=== PATIENT | male | born 1945 | race Caucasian/White ===

== ENCOUNTER 2017-03-20 15:20 | Inpatient (IN) | payer MEDICARE ==
[~2017-03-20] VITALS: Ht 167.6 cm; Wt 51.1 kg
--- NOTE | ~2017-03-20 | CON ---
PATIENT'S NAME: NEYMAR MINER [facility] AGE: 71 Y [address] ROOM: [place] [address] LOCATION: GPCU ADMIT DATE: 03/20/2017 Consultation DISCHARGE DATE: FAMILY PHYSICIAN: Neymar Urrutia ATTENDING PHYSICIAN: Jose MOLINA DATE OF CONSULTATION: 03/20/2017 REFERRING PHYSICIAN: TAN AARON MD [facility] Nephrology Consultation REASON FOR CONSULTATION: Hyponatremia. HISTORY OF PRESENT ILLNESS: This is a 71-year-old male patient who was admitted for symptomatic carotid disease. The patient did have a CTA that showed a high-grade left ICA stenosis with significant soft plaque and thrombus per Dr. Verdugo. The patient was seen in Dr. Verdugo's clinic and was subsequently admitted due to a significant respiratory distress that he was experiencing while at the clinic. On admission, the patient's sodium was found to be 115. On recheck, the sodium was found to be 111. Therefore, Dr. Stephen was consulted due to the patient's history of hyponatremia. At the time of exam, it is unknown of the patient's baseline sodium, however, he does report that he has had a low sodium over the past few months. He does have a past medical history of COPD and peripheral vascular disease with known left carotid stenosis, poor oral intake with reported weight loss of 20 pounds in the last year, alcohol abuse of 1 to 4 drinks daily, tobacco abuse, and poor medication compliance. The patient does also have a history of hyperlipidemia and hypertension. PAST SURGICAL HISTORY: 1. Right ankle surgery. 2. Left foot surgery. FAMILY HISTORY: Reviewed and is noncontributory. There is no history of electrolyte disorders or kidney disease. No history of dialysis. The patient does report his father at the age of 63 due to heart disease. His mother had brain cancer. SOCIAL HISTORY: The patient does report tobacco abuse as well as 1 to 3 drinks of beer daily. CURRENT ALLERGIES: PATIENT'S NAME: NEYMAR MINER [facility] AGE: 71 Y [address] ROOM: [place] [address] LOCATION: GPCU ADMIT DATE: 03/20/2017 Consultation DISCHARGE DATE: FAMILY PHYSICIAN: Neymar Urrutia ATTENDING PHYSICIAN: Jose MOLINA None to medication. CURRENT HOME MEDICATIONS: Include: 1. Lipitor 20 mg daily. 2. Plavix 75 mg daily. 3. Norvasc 2.5 mg daily. 4. Aspirin 81 mg 4 tablets daily. 5. Lisinopril and hydrochlorothiazide 1 tablet daily. 6. Anoro Ellipta 1 puff inhalation daily. 7. Albuterol HFA 6.7 g 1 puff p.o. p.r.n. shortness of breath. 8. Albuterol and ipratropium 0.5/3 q.6 hours p.r.n. shortness of breath. REVIEW OF SYSTEMS: GENERAL: Positive for a 20-pound weight loss over the last year. HEENT: Eyes; positive for visual changes. Nose; no epistaxis or rhinorrhea. Mouth; no gingival bleeding. Throat; no sore throat, hoarseness, or cough. RESPIRATORY: Denies wheezing or hemoptysis. History of COPD. History of dyspnea. CARDIOVASCULAR: Negative for chest pain or palpitations. Positive for orthopnea. GASTROINTESTINAL: Negative for nausea, vomiting, or diarrhea. GENITOURINARY: Negative for hematuria or nocturia. Negative for incontinence. Negative for hesitancy or urgency. REPRODUCTIVE: Negative for erectile dysfunction. MUSCULOSKELETAL: No new arthralgias or myalgias. IMMUNOLOGICAL: No history of recent infections. NEUROLOGICAL: No dizziness, memories, or seizures. PSYCHIATRIC: Denies depression or anxiety. DERMATOLOGIC: Denies any new rashes or lesions. HEMATOLOGICAL: Denies any bruising or easy bleeding. PHYSICAL EXAMINATION: VITAL SIGNS: Blood pressure 117/71, pulse is 96, respirations 16, and temperature is 97.8. Weight is 48.6 kg. GENERAL: On exam, this is an alert and oriented, white elderly male who appears his approximate stated age. He is in no acute distress. HEENT: His head is normocephalic and atraumatic. Eyes; pupils are equal and react briskly to light and accommodation. EOMs are intact. Nose is midline. Mouth; no gingival bleeding. Oral mucosa is pink and moist. NECK: Soft and supple. No JVD or lymphadenopathy. Positive carotid bruit on the left. RESPIRATORY: Lung sounds are clear to auscultation anteriorly and posteriorly. Breath sounds are nonlabored. CARDIOVASCULAR: Regular rate and rhythm. Unable to appreciate any murmurs, PATIENT'S NAME: NEYMAR MINER [facility] AGE: 71 Y [address] ROOM: [address] [place], [place] [address] LOCATION: GPCU ADMIT DATE: 03/20/2017 Consultation DISCHARGE DATE: FAMILY PHYSICIAN: Neymar Urrutia ATTENDING PHYSICIAN: JESSE,Jose rubs, or thrills. ABDOMEN: Soft, nontender, and nondistended. Bowel sounds are positive. EXTREMITIES: Show no signs of peripheral edema, clubbing, or cyanosis. NEUROLOGIC: Cranial nerves 2 through 12 are grossly intact. PSYCHIATRIC: Orientation to person, place, and time. LABORATORY DATA AND IMAGING STUDIES: CBC shows WBCs of 11.7, hemoglobin 15.2, hematocrit 42.1, and platelets are 378,000. Glucose is 95; BUN is 15; creatinine 0.8; sodium 115, on recheck 111; potassium 3.7; chloride is 79; CO2 is 24; calcium is 8.6; albumin is 3.3; phosphorus is 2.9; and INR is 0.97. Random urine sodium is 34, uric acid is 5.4, osmolality is 240, and urine osmolality is 463. Cortisol 29.1, TSH is 0.757. Chest x-ray was performed noting fibrotic stranding with no acute infiltrate. A CT neck with contrast for carotid artery protocol notes: 1. Complete occlusion of the right ICA. 2. Vahmdosh-su-pfwkyq stenosis involving the proximal left ICA measuring 60% to 70%. 3. Moderate stenosis involving the mid left ICA secondary to adjacent degenerative changes. 4. Severe emphysematous changes are present at the mid and upper lungs bilaterally. ASSESSMENT AND PLAN: 1. Hyponatremia. This is likely secondary to syndrome of inappropriate secretion of antidiuretic hormone (SIADH) versus beer potomania. The patient does have a longstanding history of chronic obstructive pulmonary disease with lung scarring noted on chest x-ray. He does also report a 20- pound weight loss and poor oral intake over the last year. Fluid intake has been excessive up to approximately 5 L. Cortisol is within normal limits as well as TSH. We will initiate 3% sodium chloride to run at 50 mL an hour x5 hours. We will repeat a stat sodium at that time, and make further recommendations as they are forthcoming. 2. Left carotid artery stenosis. Per Dr. Verdugo. 3. Tobacco abuse. 4. Alcohol abuse. 5. Hypertension. Blood pressure is within normal limits. They are stable. Continue current medications at this time. We have discontinued the hydrochlorothiazide from his home medication list. 6. Hyperlipidemia. Continue statin therapy at this time. We will monitor liver function tests while hospitalized. 7. Chronic obstructive pulmonary disease. 8. Severe protein-calorie malnutrition. PATIENT'S NAME: NEYMAR MINER [facility] AGE: 71 Y [address] ROOM: [address] [place] [address] [facility] AD[facility] DATE: 03/20/2017 Consultation DISCHARGE DATE: FAMILY PHYSICIAN: Neymar Urrutia ATTENDING PHYSICIAN: Jose MOLINA This patient has been seen and assessed by Dr. Stephen. His care is being conducted in consultation with Dr. Stephen as well as Marylou Shell DNP, APRN. We will plan further recommendations as they are forthcoming. MARYLOU SHELL DNP, APRN FOR Rea MD [facility]ET[facility] BATES/narciso /[id number] d: 03/21/17 1337 t: 03/28/17 0915, CONSULTATION REPORT
--- NOTE | ~2017-03-20 | ECHO ---
Transthoracic Echocardiography Report (TTE) Demographics Patient Name LAURENCE MINER Date of Study 03/21/2017 Patient Number [id number] Visit Number [id number] Date of 1945 Room Number G6319 Gender Male Number Age 71 year(s) Referring Ghada Ortega Software Test Engineer Physician MARILYN Garcia Physician Interpreting Scott Blue Sweet Potato Disintegrator Physician A Supervising Ordering Lupe Garcia MD/MLP Physician Nurse Stress Solar Energy Consultant And Designer Conclusions Contractility Score Summary Normal Left Ventricular contractility was noted. Summary Technically difficult exam. Mild to moderate concentric left ventricular hypertrophy. Diastolic assessment reveals Grade I diastolic dysfunction . Hyperdynamic LV systolic performance. Left ventricle appears hyperdynamic. Mild mitral annular calcification. Trivial mitral regurgitation by color Doppler. Mild to moderate calcification of the mitral valve.Thickening of AMVL. Cannot rule out vegetation The aortic valve is mildly sclerotic. There is mild aortic regurgitation. Procedure Type of Study TTE procedure:2D Echocardiogram. Procedure Date Date: 03/21/2017 Start: 08:09 AM Study Location: Inpatient Portable Technical Quality: Limited visualization due to poor acoustical window. Indications:Dyspnea/SOB. Appropriate Use Criteria: 9 Patient Status: Routine HR: 108 bpm BP: 117/71 mmHg M-Mode/2D Measurements LV Septum Diastolic: 1.67 cm LV PW Diastolic: 1.63 cm AO Root Dimension: 3.3 cm Cardiac Output: 6.14 l/min AV Cusp Separation: 1.8 cm LVOT: 2 cm RV Base: 2.53 cm LVOT VTI: 18.1 cm RV Mid: 2.14 cm LV Stroke volume: 56.83 ml TAPSE: 2.31 cm TDI-S': 27.6 cm/s Doppler Measurements AV Peak Velocity: 1.29 m/s MV Peak E-Wave: 0.84 m/s AV Peak Gradient: 6.66 mmHg MV Peak A-Wave: 1.09 m/s AV Mean Gradient: 3 mmHg MV E/A Ratio: 0.77 LVOT Peak Velocity: 0.94 m/s MV P1/2t: 91 msec E' Septal Velocity: 0.07 m/s A' Septal Velocity: 0.16 m/s E' Lateral Velocity: 0.07 m/s A' Lateral Velocity: 0.14 m/s Findings Left Ventricle Mild to moderate concentric left ventricular hypertrophy. Diastolic assessment reveals Grade I diastolic dysfunction . Hyperdynamic LV systolic performance. Left ventricle appears hyperdynamic. Right Ventricle Normal right ventricle structure and function. Left Atrium Normal left atrial size. Right Atrium The right atrium is mildly dilated. IVC measures 1.02 cm with inspiratory collapse. Mitral Valve Mild mitral annular calcification. Trivial mitral regurgitation by color Doppler. Mild to moderate calcification of the mitral valve.Thickening of AMVL. Cannot rule out vegetation Aortic Valve The aortic valve is mildly sclerotic. There is mild aortic regurgitation. Tricuspid Valve The tricuspid valve is not well visualized. Pulmonic Valve The pulmonic valve is not well visualized. Pericardial Effusion Possible trivial pericardial effusion. Miscellaneous The aortic root appears mildly dilated. The maximum diameter measures 3.3 cm. Pleural Effusion No evidence of pleural effusion. Contractility Score LV regional wall motion:(0-Non visualized 1-Normal 2-Hypokinesis 3-Akinesis 4-Dyskinesis 5-Aneurysm) Signature dtt: Britt Chavez dtd: 03/21/17 0809
--- NOTE | ~2017-03-20 | OR ---
PATIENT'S NAME: NEYMAR MINER [facility] AGE: 71 Y [address] ROOM: [address] [address] LOCATION: CU ADMIT DATE: 03/20/2017 OR/Procedure Report DISCHARGE DATE: FAMILY PHYSICIAN: Neymar Urrutia ATTENDING PHYSICIAN: Jose MOLINA SURGEON: Jv Verdugo MD LAB TESTER: DATE OF PROCEDURE: 03/23/2017 PREOPERATIVE DIAGNOSIS: Symptomatic left carotid stenosis. POSTOPERATIVE DIAGNOSIS: Symptomatic left carotid stenosis. PROCEDURE: Left carotid endarterectomy with bovine pericardial patch. GLASS TUBE BENDER: MYLES Barrera. ANESTHESIA: General. ESTIMATED FLUID LOSS: 300 mL. COMPLICATIONS: The patient awoke from the primary surgery with the right- sided hemiparesis. The patient had to be reexplored, had thrombosis of the internal carotid artery due to an elevated flap, this was repaired. The patient then woke up a second time, moving all extremities and neurologically intact. DESCRIPTION OF PROCEDURE: The patient was brought to the operating room, placed supine on the operating room table, placed under general anesthesia, prepped and draped in a sterile manner. Preoperative time-out was performed. The patient received preoperative antibiotics. We made a standard incision along the anterior border of the sternocleidomastoid muscle. We transected the platysma and dissected out the soft areolar tissue along the anterior border of the sternocleidomastoid muscle. We identified the internal jugular vein. Facial vein was ligated and transected. We dissected out the common, external, internal, and superior thyroid. We gave 5000 units of heparin. We clamped on all 3 major vessels and placed a clip on the superior thyroid, which was removed at the end of the case. We made an arteriotomy from the common to the internal and then passed a 5 x 3 Sundt shunt from the common to the internal. We confirmed flow with the use of Doppler. We then removed the plaque in its entirety, completing the endarterectomy orifice of the external carotid artery. We then did a standard bovine pericardial patch using 2 running 6-0 Huntley sutures. Before completing anastomosis, we clamped on the shunt and removed it. There was good backbleeding from the internal as well as bleeding from the common. We then completed the anastomosis. We then PATIENT'S NAME: NEYMAR MINER [facility] AGE: 71 Y [address] [place]: [facility] [address] [place], [place] [address] LOCATION: [facility] ADMIT DATE: 03/20/2017 OR/Procedure Report DISCHARGE DATE: FAMILY PHYSICIAN: Neymar Urrutia ATTENDING PHYSICIAN: Jose MOLINA reversed heparin. Hemostasis was achieved. We used thrombin. Deep layers were closed with 2-0 and 3-0 Vicryl. Skin was closed with running 4-0 Monocryl. We then attempted to wake up the patient. On awaking, he was able to move his left side without any issues; however, he was not following commands, he was not moving his right hand, his right foot was moving but very minimally. After 10 minutes, as the patient did not improve, we placed him back under general anesthesia, reopened his incision. We reopened his endarterectomy site. We clamped on the common, the external, and the superior thyroid. We did not place a clamp on the internal. We opened up the patch. There appeared to be thrombosis of the ICA. After we evacuated the plaque, we noticed that the posterior wall had created a flap extending up the ICA. We were able to remove this posterior flap and then re-patch the artery with another bovine pericardial patch. Once we removed the clamps, there was once again excellent flow into the ICA. We did not reverse the heparin. Deep layers were closed with 2-0 and 3-0 Vicryl. Skin was closed with Monocryl once again. The patient awoke in the operating room, at this time neurologically intact with no deficits. MD LYNNE SMITH/narciso /[id number] d: 03/23/17 2254 t: 03/24/17 1014, OPERATIVE SUMMARY
--- NOTE | ~2017-03-20 | CON ---
PATIENT'S NAME: NEYMAR MINER [facility] AGE: 71 Y [address] ROOM: [address] [place], [place] [address] [facility] AD[facility] DATE: 03/20/2017 Consultation DISCHARGE DATE: FAMILY PHYSICIAN: Neymar Urrutia ATTENDING PHYSICIAN: Jose ANDRADE DATE OF CONSULTATION: 03/20/2017 REFERRING PHYSICIAN: TAN AARON MD PULMONARY CONSULTATION NOTE REQUESTING PHYSICIAN: Jv Verdugo MD REASON FOR CONSULTATION: Preoperative pulmonary evaluation. CHIEF COMPLAINT: Shortness of breath. HISTORY OF PRESENT ILLNESS: This is a 71-year-old male with history of longstanding smoking, hypertension, hyperlipidemia, and other comorbidities, who was admitted today from the vascular surgeon's office for evaluation of significant shortness of breath in the context of need of semi-urgent carotid endarterectomy. According to the patient and the available medical records, he started having vision changes approximately two weeks ago. Eventually, he was diagnosed with complete occlusion of the right ICA and teqhgjgw-ln-zdamgw stenosis of the left ICA. For this reason, he came to Dr. Verdugo's office today to discuss regarding left carotid endarterectomy. It was noted that the patient was very short of breath, reason for which Dr. Verdugo, the vascular surgeon, admitted him to the hospital with a plan to do the carotid endarterectomy in three days from now. Meanwhile, I was asked to come and evaluate the patient because of his ongoing shortness of breath. According to the patient and his family members, who were present at the bedside, he has been feeling more short of breath for the last year. Three days ago, he went to the local emergency department where he was started on supplemental oxygen and was given also Anoro Ellipta inhaler to be used daily with DuoNebs as needed during the day. Despite this he still feels very short of breath with minimal exertion. However, he denies significant cough, sputum production, hemoptysis, fevers, or chills. He has a mild cough with clear sputum production which he attributes to his prolonged smoking history. In fact, he stopped smoking only three days ago after he visited the local emergency department. Prior to that, he had been smoking for more than 50 years at least one pack per day. 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 He has had also an unintentional weight loss for PATIENT'S NAME: NEYMAR MINER [facility] AGE: 71 Y [address] ROOM: [place] [address] LOCATION: GPCU ADMIT DATE: 03/20/2017 Consultation DISCHARGE DATE: FAMILY PHYSICIAN: Neymar Urrutia ATTENDING PHYSICIAN: Jose ANDRADE the past one year and was told in the past that he had low sodium levels which his primary care physician managed with fluid restriction. 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 PAST MEDICAL HISTORY: 1. Hyperlipidemia. 2. Hypertension. 3. Tobacco abuse. 4. Carotid stenosis. 5. Recently diagnosed chronic respiratory failure. 6. Emphysema. PAST SURGICAL HISTORY: He had right ankle and left foot surgical interventions. FAMILY HISTORY: His father at the age 63 due to coronary artery disease. His mother had brain cancer. SOCIAL HISTORY: Smoking history as per History of Present Illness. He also drinks 1 to 3 beers a day. There is no history of illicit drug abuse. He is currently retired and living at home with his . CURRENT MEDICATIONS: Reviewed as per chart. Notably, he is on: 1. Amlodipine. 2. Lisinopril and hydrochlorothiazide. 3. Plavix. 4. Lipitor. 5. Aspirin. 6. Anoro, DuoNeb, and albuterol. REVIEW OF SYSTEMS: Pertinent positives and negatives as per History of Present Illness. He is also reporting bright red blood per rectum which he thinks is due to hemorrhoidal bleed. According to his family remembers, he has also had a poor appetite although he denies it. Otherwise, a 12-point review of systems was performed and it was negative. PHYSICAL EXAMINATION: VITAL SIGNS: Temperature is 98.0, heart rate is 110, respiratory rate is 22, blood pressure is 151/70, and oxygen saturation 95% on room air initially and then 94% on 2 L/minute. Weight 50 kg, height 5 feet 7 inches with a BMI of PATIENT'S NAME: NEYMAR MINER [facility] AGE: 71 Y [address] ROOM: [place] [address] LOCATION: GPCU ADMIT DATE: 03/20/2017 Consultation DISCHARGE DATE: FAMILY PHYSICIAN: Neymar Urrutia ATTENDING PHYSICIAN: Jose ANDRADE 17.2. GENERAL: He is an elderly male, frail looking, in no respiratory distress, but speaking in short sentences. HEENT: Atraumatic head. PERRLA. EOMI. Anicteric sclerae. Moist oral mucosa. NECK: Supple. No JVD. No lymphadenopathy. Trachea midline. No thyromegaly. CARDIOVASCULAR: Regular rhythm. Tachycardic on my exam with a heart rate of 108. No murmurs, rubs, or gallops. RESPIRATORY: He has a barreled chest with distant and diminished breath sounds throughout, but without any wheezes or crackles. ABDOMEN: Soft, nontender, and nondistended. Bowel sounds are present. EXTREMITIES: No lower extremity edema. No cyanosis and no clubbing. NEUROLOGIC: He is alert and oriented x4. Grossly nonfocal. LABORATORY DATA AND IMAGING STUDIES: A CBC was normal except for a mildly elevated WBC of 11.7. Basic panel revealed a sodium of 115, potassium of 3.7, chloride of 79, total serum bicarbonate of 24, BUN of 15, and creatinine of 0.8. Neck CTA revealed complete occlusion of the right ICA with migqjabd-aj-qsypjm stenosis involving the proximal left ICA and severe emphysematous changes that were seen on the lung cuts. I personally reviewed the images. ASSESSMENT: 1. Preoperative pulmonary evaluation. My feeling is that the patient will have a high risk for postoperative pulmonary complications as I suspect he has advanced lung disease. However, he will need pulmonary function tests to better evaluate his lung function. 2. Acute respiratory failure. I suspect this is on a chronic component due to his advanced lung disease. 3. Right carotid complete occlusion with frurytaz-gr-vuffkp stenosis in the left carotid. He is needing carotid endarterectomy, which it is in semi- urgent fashion. 4. Emphysema. This is seen on neck CT. He may benefit from a dedicated chest CT. 5. Tobacco abuse. This is in remission, although the patient has long- standing smoking history. 6. Hyponatremia. This is of unclear etiology but seems to be worrisome given his other comorbidities. PLAN: 1. I will order a full set of pulmonary function tests. 2. I will start him on DuoNebs every 4 hours while awake in preparation for his surgery. 3. We will follow up sodium levels closely and I will suggest a Nephrology PATIENT'S NAME: NEYMAR MINER [facility] AGE: 71 Y [address] ROOM: [address] [place], [place] [address] [facility] AD[facility] DATE: 03/20/2017 Consultation DISCHARGE DATE: FAMILY PHYSICIAN: Neymar Urrutia ATTENDING PHYSICIAN: Jose ANDRADE consultation for further evaluation and management. 4. We will titrate FiO2 as tolerated to keep O2 sats between 89% and 95%. 5. I will order an ABG. The current assessment and plan was discussed with the patient, the patient's family, Dr. Andrade from the Hospitalist Service, and Dr. Verdugo. I would like to thank you, Dr. Verdugo, for giving me the opportunity to participate in this patient's care. MD ALEE ROCK/modl /[id number] d: 03/21/172002 t: 03/22/17 0725, CONSULTATION REPORT
--- NOTE | ~2017-03-20 | PUL ---
PATIENT'S NAME: NEYMAR MINER [facility] AGE: 71 Y [address] ROOM: [address] [address] LOCATION: [facility] [place] ADMIT DATE: 03/20/2017 Pulmonary DISCHARGE DATE: FAMILY PHYSICIAN: Neymar Urrutia ATTENDING PHYSICIAN: Jose MOLINA NAME OF PROCEDURE: Pulmonary Function Test DATE OF PROCEDURE: March 21, 2017 TECH: ATripe, TECHNOLOGY INFUSION SPECIALIST REASON FOR EXAM: COPD RESULTS: 1. FVC was 2.1 liters which is 56% of predicted and low, FEV1 was 0.82 liters which is 30% of predicted and low, and FEV1/FVC was 39% and low. The flow volume curve revealed significant airflow limitation. After bronchodilator administration FVC increased to 3.11 liters which is a 48% increase, and FEV1 increased to 0.89 liters which is an 8% increase. FEV1/FVC was 29%. 2. DLCO was 6 with an adjusted DLCO of 6.1 which is 45% of predicted and normal. 3. Total lung capacity was 8.55 liters which is 154% of predicted and high, and residual volume was 6.09 liters which is 267% of predicted and high. PHYSICIAN INTERPRETATION: The patient has very severe airflow limitation with a significant bronchodilator response. His diffusion capacity is normal. There is evidence of significant hyperinflation and air trapping on the lung volumes. MD ALEE ROCK/silvia /[id number] dtt: 03/28/17 1947 , TAN AARON dtd: 03/24/17 1126
--- NOTE | ~2017-03-20 | HP ---
PATIENT'S NAME: NEYMAR MINER [facility] AGE: 71 Y [address] ROOM: [id number] [place], [place] [address] LOCATION: [facility] ADMIT DATE: 03/20/2017 History & Physical DISCHARGE DATE: FAMILY PHYSICIAN: Neymar Urrutia ATTENDING PHYSICIAN: Jose MOLINA DATE OF SERVICE: CHIEF COMPLAINT: Right carotid artery stenosis. HISTORY OF PRESENT ILLNESS: The patient is a 71-year-old gentleman with past medical history of COPD, tobacco use, hypertension, and hyperlipidemia who presents here with right carotid artery stenosis. The patient was noted to have vision change and had a CTA of head and neck in order to investigate his vision change, which improved after few days. CT showed complete occlusion of the right ICA and ztigbhnc-ou-nbcurk stenosis involving the proximal left ICA measuring 60% to 70%. The patient was seen by Dr. Verdugo for possible carotid endarterectomy. The patient also reports of worsening of shortness of breath for the past few days. He was seen at [place] on Monday for the same issue and was treated with nebulizer and was discharged home with home oxygen. He was started on home oxygen on Monday, which is yesterday. The patient reports that he has dyspnea on exertion and worsening of shortness of breath. He denies worsening of productive cough, increased sputum production, and reports that his sputum's are clear. He denies any fever and chills. He also reports that he was started on new breathing treatment on his last visit at the emergency department. The patient also reports of unintentional weight loss for the past one year and also reports that he was told he has low sodium level on his last visit, which his primary care physician was told to restrict fluid intake. He has a history of alcohol use and reports he drinks 1-2 beer a day and his last drink on Monday and denies history of withdrawal symptom. Currently, he denies fever, chills, chest pain, nausea, vomiting, abdominal pain, diarrhea, and fall. Of note, the patient also reports of hemorrhoidal bleed lately. MEDICAL HISTORY: 1. COPD. 2. Tobacco use. 3. Hyperlipidemia. 4. Hypertension. 5. Alcohol use. 6. Carotid stenosis. PATIENT'S NAME: NEYMAR MINER [facility] AGE: 71 Y [address] ROOM: [place] [address] LOCATION: [facility] ADMIT DATE: 03/20/2017 History & Physical DISCHARGE DATE: FAMILY PHYSICIAN: Neymar Urrutia ATTENDING PHYSICIAN: Jose MOLINA SURGICAL HISTORY: Right ankle surgery and left foot surgery. FAMILY HISTORY: The patient reports his father at age 63 due to coronary artery disease. Also reports his mom had a brain cancer. SOCIAL HISTORY: The patient has history of tobacco use. 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 MEDICATIONS: 1. Albuterol. 2. Amlodipine 2.5 mg. 3. Aspirin. 4. Lipitor 20 mg. 5. Plavix 75 mg. 6. DuoNeb. 7. Lisinopril with hydrochlorothiazide. 8. Anoro Ellipta one puff every day, 6.25-25 mcg. REVIEW OF SYSTEMS: All systems have been reviewed and are negative except for what I mentioned in the HPI. PHYSICAL EXAMINATION: VITAL SIGNS: Temperature 98, respiratory rate 22, pulse 110, blood pressure 151/70. GENERAL APPEARANCE: The patient is alert and awake, in mild expiratory distress. The patient is cachectic. HEAD: Normocephalic, atraumatic. EYES: Extraocular muscle intact. Sclerae non-icterus. NOSE: No nasal discharge. ORAL CAVITY: Moist oral cavity. HEART: Tachycardic. No murmurs, rubs, or gallops heard. LUNGS: Decreased air entry bilateral. No rales, wheezes, or rhonchi heard. ABDOMEN: Soft, nontender, and nondistended. RECTAL: Shows mild external hemorrhoid with all blood stain, not bleeding actively. SKIN: Warm to touch. YARD JACKER: The patient is alert and oriented x3. Motor and sensory grossly intact. MUSCULOSKELETAL: Range of motion intact. No obvious joint effusion noted. PATIENT'S NAME: NEYMAR MINER [facility] AGE: 71 Y [address] ROOM: [place] [address] LOCATION: [facility] ADMIT DATE: 03/20/2017 History & Physical DISCHARGE DATE: FAMILY PHYSICIAN: Neymar Urrutia ATTENDING PHYSICIAN: Jose MOLINA LABORATORY DATA: ABG; pH 7.49, pCO2 of 32, PO2 of 97, and bicarb of 24.4. White blood cell count of 11.7, hemoglobin of 15.2, and platelet of 378. Sodium of 115, potassium of 3.7, chloride of 79, CO2 of 24, calcium of 8.6, BUN of 15, and creatinine of 0.8. IMAGING: EKG shows sinus tachycardia with possible biatrial dilation. Q-waves in [address] and T-wave changes concern for ischemia. ASSESSMENT AND PLAN: 1. Hyponatremia. The patient appears euvolemic. Etiology, beer potomania versus SIADH. We will hold hydrochlorothiazide. We will restrict the patient to 1200 mL of fluid in 24 hours. We will acquire TSH and cortisol level. We will also acquire urine electrolytes including sodium, potassium, and urine osmole and also acquire serum osmol. We will acquire chest x-ray to further investigate SIADH since the patient has history of tobacco use and recent loss of weight and appetite. Consulted Dr. Stephen to follow up with labs closely. 2. Chronic obstructive pulmonary disease exacerbation. The patient is presenting with worsening of shortness of breath and dyspnea on exertion. We will acquire chest x-ray. We will hold off steroid use for now as it is part of the workup for the hyponatremia and if the patient has adrenal insufficiency, would affect the diagnostic and also treatment for his hyponatremia. Awaiting random cortisol level. We will hold his Anoro Ellipta. We will start the patient on DuoNeb q.4 hours while awake. Continue [address] Garcia consulted. 3. Yieav-ba-irlhzdn hypoxic respiratory failure. Please see problem #2. 4. Right carotid stenosis. Dr. Verdugo on board for possible surgery during this admission. We will hold off surgery for now. We will start the patient on high-dose Lipitor and continue aspirin. We will hold Plavix for hemorrhoidal bleed. 5. Severe protein calorie malnutrition. Etiology most likely secondary to severe chronic obstructive pulmonary disease versus malignancy. We will consult dietitian, we will treat underlying issue. 6. External hemorrhoidal bleed. On physical, the patient has external hemorrhoid with old blood stain, currently not bleeding. We will start the patient on hydrocortisone and start the patient on MiraLax and docusate. We will hold Plavix. Continue aspirin. 7. Tobacco use. Greater than 3 minutes but less than 10 minutes discussion was made about tobacco cessation. The patient is ready to quit tobacco, we will offer nicotine patch. 8. Alcohol use and abuse. Last alcohol use on Monday. We will place the patient on CIWA protocol for possible withdrawal. PATIENT'S NAME: NEYMAR MINER [facility] AGE: 71 Y [address] ROOM: [place] [address] LOCATION: [facility] ADMIT DATE: 03/20/2017 History & Physical DISCHARGE DATE: FAMILY PHYSICIAN: Neymar Urrutia ATTENDING PHYSICIAN: Jose MOLINA 9. Hypertension. We will hold thiazide. We will start the patient on amlodipine 10 mg. 10. Hyperlipidemia. We will continue Lipitor. I have personally reviewed the patient's medical record including but not limited to blood work and radiology report. Total time spent with the patient is greater than 70 minutes, more than 50% of the time spent in direct patient care and patient consultation. Case reviewed with the patient, nursing staff. All questions were answered to patient's satisfaction. Case was also reviewed with Dr. Verdugo, Dr. Stephen, and Dr. Garcia. Code status on admission, full code. MD BRIDGET BRIONES/narciso /[id number] D: [id number] T: [id number] HISTORY & PHYSICAL
--- NOTE | ~2017-03-20 | DS ---
PATIENT'S NAME: NEYMAR MINER [facility] AGE: 71 Y [address] ROOM: [id number] [place], [place] [address] LOCATION: [facility] ADMIT DATE: 03/20/2017 Discharge Summary DISCHARGE DATE: 03/25/2017 FAMILY PHYSICIAN: Neymar Urrutia ATTENDING PHYSICIAN: Jose Andrdae PRIMARY DIAGNOSES: 1. Left carotid stenosis, symptomatic. 2. Chronic obstructive pulmonary disease without exacerbation. 3. Acute on chronic hypoxic respiratory failure. 4. Hyponatremia. 5. Postoperative hypotension. 6. Alcohol dependence with some withdrawal symptoms. 7. Acute urinary retention. 8. Left hydronephrosis. 9. Sinus tachycardia. 10. Severe protein calorie malnutrition. 11. Chronic conditions include: COPD and complete occlusion of right carotids. PRINCIPAL PROCEDURES: Done for the patient include left CEA by Dr. Verdugo. LABORATORY DATA: On admission, WBC was 11.7, prior to discharge was 10.0; H and H on admission was 15.2/42.1 was stable throughout hospital stay, prior to discharge were 13.2/37.7. ABG on admission was pH 7.49, pCO2 of 32, PO2 of 97, bicarb 25 on 2 L of nasal cannula. Platelet was stable throughout the hospital stay. On admission, sodium was 115, lowest level obtained 111, prior to discharge was 132. Potassium on admission was 3.7, was repleted multiple times, prior to discharge was 3.5, also got another dose p.o. of potassium chloride. Bicarb was stable throughout hospital stay upon discharge it was 30. BUN was also stable throughout the hospital stay. Magnesium was 2.3 on admission, prior to discharge was 2.1. Phosphorus was also stable throughout hospital stay. INR was 0.97. UA was leukocytes negative, nitrite negative, wbc 0-2, bacteria negative, urine potassium was 40, urine osmolality was 464, serum osmolality was 240. RADIOLOGY: Chest x-ray is reported as fibrotic stranding with no acute infiltrate. CTA of the neck with contrast, complete occlusion of the right ICA, yhjhgjvd-ut-oofyue stenosis involving the proximal left ICA measuring 60 to 70 cm, moderate stenosis involving the mid left ICA secondary to adjacent degenerative changes, severe emphysematous changes are present at the mid and upper lungs bilaterally. CT thorax is reported as severe centrilobular emphysema most severe in the lower lobes on both sides. Upper abdomen shows suspected gallstones. There was also severe hydronephrosis of the left kidney with severe chronic cortical loss. Kidney ultrasound, severe left PATIENT'S NAME: NEYMAR MINER [facility] AGE: 71 Y [address] ROOM: [place] [address] LOCATION: [facility] ADMIT DATE: 03/20/2017 Discharge Summary DISCHARGE DATE: 03/25/2017 FAMILY PHYSICIAN: Neymar Urrutia ATTENDING PHYSICIAN: Jose Andrade hydronephrosis with atrophic appearing left kidney. Right renal cyst. Trabeculated appearing bladder. CT of abdomen and pelvis reported as severe left hydronephrosis with severely atrophic left kidney. Small right renal cyst. Marked emphysematous changes at the lung bases. Mild circumferential bladder wall thickening. Echocardiogram reported as kyqm-nf-vzowoccg left ventricular hypertrophy, grade 1 diastolic dysfunction, hyperdynamic LV systolic performance. Pulmonary function test, the patient has very severe airflow limitation with a significant bronchodilator response. His diffusion capacity is normal. There is evidence of significant hyperinflation and air trapping on the lung volumes. HOSPITAL COURSE: For history of present illness, please take a look at H and P, which was done by Dr. Andrade. The patient was admitted to Progressive Care Unit. Had Pulmonary consult for his COPD without exacerbation. Pulmonary consult was for a preop evaluation. The patient was seen by Dr. Garcia who recommended full pulmonary function test as well as CT of his chest. CT of the chest, please check under the section of the labs for details. The patient also did present with acute on chronic hypoxic respiratory failure which responded to the breathing treatment which the patient was given. He was successfully weaned off oxygen to room air prior to the surgery. Recommendations per Pulmonary were given the patient's severe COPD, he may require some BiPAP postop. During his hospital stay given his alcohol dependence, the patient was also put on CIWA pathway requiring p.r.n. use of Ativan for agitation which occurred intermittently. By the fourth day of his hospital stay, the patient eventually was medically stable and his pulmonary function was also better and he was cleared for the OR. The patient had some difficulty getting up after the anesthetic agent and postop he did develop some postop hypotension which responded to pressor which was eventually weaned off. Postop he was transferred to the ICU. He was in the ICU for the first day postop and then eventually transferred out of the ICU to PCU for the second day postop, thereafter the patient was medically stable. Blood pressure was stable. His respiratory status was stable on room air. He did get an overnight trend ox, which was normal and so the patient did not qualify for at bedtime use of oxygen. During the investigation during which he had a CT chest done which showed left hydronephrosis. He did also get a Urology consult for this and they recommended continued to follow up the patient as outpatient. However, postop he did also develop some acute urinary retention, for which the patient did not recover from and so had a Cole catheter placed and discharged home on a Cole catheter and he was started on Flomax. On the day of discharge, vital signs were stable and the patient was discharged home. Also note that the patient also did get a Nephrology consult for his hyponatremia which was corrected over the first two days of his hospital stay with 3% normal saline and the patient was also put on fluid restriction of 1500 mL per day. PATIENT'S NAME: NEYMAR MINER [facility] AGE: 71 Y [address] ROOM: [place] [address] LOCATION: [facility] ADMIT DATE: 03/20/2017 Discharge Summary DISCHARGE DATE: 03/25/2017 FAMILY PHYSICIAN: Neymar Urrutia ATTENDING PHYSICIAN: Jose Andrade DISCHARGE INSTRUCTIONS: Include fluid restriction 1500 mL per day. Regular diet. Activity as tolerated. He is to follow up with his PCP in the next 4 to [address] Verdugo in the next 2 weeks as well as you Urology in the next 2 weeks. MEDICATIONS ON DISCHARGE: Include, 1. Norvasc 10 mg p.o. daily dose change. 2. Aspirin 325 mg p.o. daily. 3. Plavix 75 mg p.o. daily. 4. Lipitor 80 mg p.o. daily at bedtime dose change. 5. Colace 100 mg p.o. twice daily. 6. Hydrocortisone base one application topically twice daily. 7. DuoNebs one vial every 6 hours p.r.n. 8. MiraLax 17 g p.o. daily p.r.n. new medication. 9. Thiamine 100 mg p.o. at bedtime new medication. 10. Proventil 1 puff p.o. as needed p.r.n. 11. Flomax 0.4 mg p.o. daily new medication. 12. Potassium chloride p.o. at bedtime tonight x1 time. 13. [place] 5/325 mg 1-2 tablets every 4 hours as needed for pain. Discharge time spent on this patient includes over 35 minutes which included discussing the patient's followup plans. MD KATE BOWLING/narciso /[id number] d: 03/25/17 2248 t: 04/02/17 1419, DISCHARGE SUMMARY
--- NOTE | ~2017-03-20 | CON ---
PATIENT'S NAME: NEYMAR MINER [facility] AGE: 71 Y [address] ROOM: [place] [address] LOCATION: [facility] ADMIT DATE: 03/20/2017 Consultation DISCHARGE DATE: FAMILY PHYSICIAN: Neymar Urrutia ATTENDING PHYSICIAN: Jose MOLINA DATE OF CONSULTATION: 03/22/2017 REFERRING PHYSICIAN: TAN AARON MD CHIEF COMPLAINT: Left hydronephrosis. HISTORY OF PRESENT ILLNESS: The patient is a pleasant 71-year-old male, who is incidentally noted on CT scan of his chest to have significant left hydronephrosis and severe cortical thinning. His right kidney did appear to be without any hydronephrosis and normal appearance. Again, this is a CT scan of his chest and this was not a complete exam of his kidneys or ureters. His kidney function is normal with a serum creatinine level on March 21, 2017, of 0.6 and BUN of 12. He denies any left flank pain. He denies any history of nephrolithiasis. He denies any prior knowledge of any sort of kidney blockage or obstruction. The patient denies any gross hematuria. The patient does have a significant smoking history. He was an active smoker up until this hospitalization with a history of smoking more than 50 years with at least 1 pack per day. He denies any known family history of genitourinary abnormalities or malignancy. The patient has noted some weakening of his urinary stream over the years. He denies any history of urinary retention. He denies any previous procedures on his kidneys or his prostate. The patient has no further questions or concerns at this time. The patient is currently admitted with carotid stenosis and apparently is set for surgery with Dr. Verdugo tomorrow. PAST MEDICAL HISTORY: 1. Hyperlipidemia. 2. Hypertension. 3. Tobacco abuse. 4. Carotid stenosis. 5. Recently diagnosed chronic respiratory failure. 6. Emphysema. PAST SURGICAL HISTORY: 1. Right ankle surgery. 2. Left foot surgery. FAMILY HISTORY: The patient denies any known family history of genitourinary abnormalities or PATIENT'S NAME: NEYMAR MINER [facility] AGE: 71 Y [address] ROOM: [place] [address] LOCATION: [facility]U ADMIT DATE: 03/20/2017 Consultation DISCHARGE DATE: FAMILY PHYSICIAN: Neymar Urrutia ATTENDING PHYSICIAN: Jose MOLINA malignancy. SOCIAL HISTORY: The patient does have a significant smoking history with smoking 1-pack per day for over 50 years and just recently quit smoking several days ago. MEDICATIONS: See hospitalization medication reconciliation. ALLERGIES: NO KNOWN DRUG ALLERGIES. REVIEW OF SYSTEMS: A full 10+ point review of systems was performed with pertinent positive and negative findings included in the history of present illness. All other systems reviewed and are otherwise negative. PHYSICAL EXAMINATION: VITAL SIGNS: Temperature 98.6 Fahrenheit, pulse 120, blood pressure 139/77, respiratory rate 20, and oxygen saturation 96% on room air. His height is 5 feet 7 inches, and his weight is 110 pounds. CONSTITUTIONAL: No acute distress. Hemodynamically stable. HEENT: Extraocular muscles intact. Mucous membranes moist. No drainage per ears or nose. CARDIAC: Good peripheral perfusion. RESPIRATORY: No audible wheezing, and no apparent respiratory distress. ABDOMEN: Soft, nontender, nondistended. EXTREMITIES: Moves all extremities with no clubbing, cyanosis, or edema. NEUROLOGIC: No focal deficits noted. HEMATOLOGIC: No bruising or active sites of bleeding. PSYCHIATRIC: Answers questions appropriately with normal affect. IMAGING: I personally reviewed his recent CT scan of his chest consistent with findings noted above in the history of present illness. IMPRESSION: Left hydronephrosis. PLAN: I had a long discussion today with the patient regarding my findings. We discussed his options including further evaluation starting with a renal and bladder ultrasound. We discussed some of the possible etiologies of left hydronephrosis including UPJ obstruction, obstructing calculi, etc. Pending results from the renal ultrasound, he may also likely need further evaluation PATIENT'S NAME: NEYMAR MINER [facility] AGE: 71 Y [address] ROOM: [place] [address] LOCATION[facility] ADMIT DATE: 03/20/2017 Consultation DISCHARGE DATE: FAMILY PHYSICIAN: Neymar Urrutia ATTENDING PHYSICIAN: Jose MOLINA with a MAG-3 renal scan to evaluate if he has any residual function left in that kidney. Given the significant cortical thinning visualized on CT scan, I suspect that he has little to no remaining function in that left kidney. We may also need further evaluation with a CT scan of his abdomen and pelvis to evaluate for any urinary calculi. I also recommended obtaining a urinalysis as there does not appear to have been one obtained yet during this hospitalization. The patient is certainly a higher risk for urologic malignancy given his strong history of smoking. I will be curious to see if he has any microscopic hematuria on urinalysis with microscopy. His questions and concerns were addressed and he has no further at this time. Please do not hesitate to call me with any questions or concerns moving forward on this individual. MD CHAO POSEY/narciso /[id number] d: 03/23/17 0157 t: 03/23/17 1834, CONSULTATION REPORT
--- NOTE | ~2017-03-20 | PUL ---
PATIENT'S NAME: NEYMAR MINER [facility] AGE: 71 Y [address] ROOM: [address] [address] LOCATION: [facility]PCU ADMIT DATE: 03/20/2017 Pulmonary DISCHARGE DATE: 03/25/2017 FAMILY PHYSICIAN: Neymar Urrutia ATTENDING PHYSICIAN: Jose Andrade NAME OF PROCEDURE: Overnight Pulse Oximetry DATE OF PROCEDURE: March 24 to March 25, 2017 REASON FOR EXAM: Nocturnal hypoxemia RESULTS: The test was performed on room air. The recording time was 9 hours, 10 minutes, and 20 seconds, with a total valid sampling time of 8 hours, 52 minutes, and 44 seconds. The highest pulse was 148, lowest pulse was 77, with a mean pulse of 100. The highest Spo2 was 100%, lowest SpO2 was 71%, with a mean SpO2 of 93.7%. The patient spent 7 minutes, 16 seconds with SpO2 less than 89%, representing 1.4% of the total sleep time. The desaturation event index was slightly elevated at 6. PHYSICIAN INTERPRETATION: The patient has evidence of significant nocturnal hypoxia and would qualify for supplemental oxygen as per Medicare criteria. His desaturation event index was slightly elevated, which is suggestive of obstructive sleep apnea. Clinical correlation is advised. MD ALEE ROCK/silvia /[id number] dtt: 03/31/17 1231 GALEN RADU F dtd: 03/30/17 0913
[2017-03-20 16:08] LABS: BASOPHIL % 0.2 %; HEMATOCRIT 42.1 % (37.0-53.0); HEMOGLOBIN 15.2 g/dL (11.0-16.0); IMMATURE GRANULOCYTE # 0.1 K/uL (0.0-0.3); IMMATURE GRANULOCYTE % 0.6 %; LYMPHOCYTE % 8.5 %; MCH 30.5 pg (27.0-34.0); MCHC 36.1 gm/dL (32.0-36.5); MCV 84.4 fl (83.0-98.0); MONOCYTE # 1.8 K/uL (0.0-1.0); MONOCYTE % 15.5 %; MPV 7.8 fl (9.4-12.4); NEUTROPHIL # (ANC) 8.8 K/uL (1.4-9.0); NEUTROPHIL % 75.2 %; NRBC % 0 /100WBC (0-0.00); PLATELET COUNT 378 K/uL (150-450); RBC 4.99 M/uL (3.50-5.50); RDW-CV 11.9 % (11.9-14.6); WBC 11.7 K/uL (4.0-11.0)
[2017-03-20] MEDS ORDERED: LIPITOR80 MG PO (16:13)
[2017-03-20] MEDS ORDERED: PLAVIX75 MG PO (16:14)
[2017-03-20] MEDS ORDERED: NORVASC10 MG PO (16:14)
[2017-03-20] MEDS ORDERED: ASPIRIN LO-DOSE81 MG PO (16:15)
[2017-03-20 16:17] LABS: INR - (THERAPEUTIC) 0.97 (0.92-1.07); PROTIME 10.2 SECONDS (9.8-11.4); PTT 32 SECONDS (25-32)
[2017-03-20] MEDS ORDERED: PROVENTIL OR V6.7 GM PO (16:18)
[2017-03-20] MEDS ORDERED: LISINOPRIL-HCT1 EAC1 PO (16:18)
[2017-03-20] MEDS ORDERED: ANORO ELLIPTA1 EACH PO (16:18)
[2017-03-20] MEDS ORDERED: DUONEB (16:19)
[2017-03-20 16:23] LABS: BLOOD UREA NITROGEN 15 mg/dL (6-24); CALCIUM 8.6 mg/dL (8.5-10.5); CO2 24 mMol/L (22-32); CREATININE 0.8 mg/dL (0.6-1.3); ESTIMATED GFR (MDRD EQUATION) > 60; POTASSIUM 3.7 mMol/L (3.7-5.1)
[2017-03-20 16:32] LABS: ANION GAP 15.7 (10.0-19.0); CHLORIDE 79 mMol/L (96-110); SODIUM 115 mMol/L (135-145)
--- NOTE | 2017-03-20 16:34 | NUR ---
Pt is 71 y/o male admit for symptomatic left carotid stenosis for . Hospitalist and to consult. Pt alert and oriented x3. No allergies. Pt has very labored breathing on arrival. Sats in low 90's upper 80's on room air. O2 applied per NC. Sats in 90's. Very low tolerance to activity due to SOB. No allergies. Resides at home with his . PT reports he was having some vision problems recently which had resolved and then came back. He saw a dr yesterday who prescribed a steroid and some oxygen but pt states everything was closed, so they didn't start any tx. Pt came from Dr's office today. Hx COPD,SOB,cough,htn,weight loss,poor appetite,bleeding hemorrhoids.
[2017-03-20 17:13] LABS: BICARBONATE 24.4 mmol/L (18.0-23.0); PCO2 32 mmHg (35-45); PO2 97 mmHg (80-90)
[2017-03-20 17:14] LABS: POTASSIUM 3.8 mEq/L (3.7-5.1)
[2017-03-21 04:01] LABS: BASOPHIL % 0.3 %; EOSINOPHIL % 0.2 %; IMMATURE GRANULOCYTE % 0.5 %; LYMPHOCYTE # 1.4 K/uL (0.8-4.0); LYMPHOCYTE % 16.3 %; MCH 30.4 pg (27.0-34.0); MCHC 35.9 gm/dL (32.0-36.5); MCV 84.8 fl (83.0-98.0); MONOCYTE # 1.3 K/uL (0.0-1.0); MPV 7.9 fl (9.4-12.4); NEUTROPHIL # (ANC) 5.9 K/uL (1.4-9.0); NEUTROPHIL % 67.7 %; NRBC % 0 /100WBC (0-0.00); PLATELET COUNT 309 K/uL (150-450); RDW-CV 11.9 % (11.9-14.6); WBC 8.7 K/uL (4.0-11.0)
[2017-03-21 04:13] LABS: ALBUMIN 3.3 gm/dL (3.5-5.0); BLOOD UREA NITROGEN 12 mg/dL (6-24); CALCIUM 8.3 mg/dL (8.5-10.5); CO2 24 mMol/L (22-32); CREATININE 0.6 mg/dL (0.6-1.3); ESTIMATED GFR (MDRD EQUATION) > 60; PHOSPHORUS 2.9 mg/dL (2.5-4.9); POTASSIUM 3.5 mMol/L (3.7-5.1)
[2017-03-21 04:14] LABS: ANION GAP 14.5 (10.0-19.0); CHLORIDE 86 mMol/L (96-110); SODIUM 121 mMol/L (135-145)
--- NOTE | 2017-03-21 05:16 | NUR ---
Pt a/o x4. vss on 1-2L NC, afebrile. NA this am 121 up from 111. 3% solution given last noc. Con't on strict 1200ml FR. K 3.5 this am 40 meq po given-had 6 beats vtach prior-asymptomatic. IV sl to RAC. SBA voids per urinal. Plan: con't work up for carotid surgery, pfts today
--- NOTE | 2017-03-21 17:49 | NUR ---
Significant Event: ALERT & ORIENTED, [place], FORGETFUL AT TIMES. VSS, AFEBRILE, ON 1 L O2 SATS HIGH 90'S BUT DYSPNEIC. CHEST CT AND PFT DONE LATE AFTERNOON. HYPERTONIC SALINE GIVEN, NA NOW 128. RESTLESS AT TIMES, CONTINUE CIWA. 1200 ML FLUID RESTRICTION. VOIDS PER URINAL. BLEEDING HEMORRHOIDS. 2 PIV, SL. Follow up: PENDING MEDICAL CLEARANCE, SURGICAL CANDIDATE?
[2017-03-22 03:48] LABS: BASOPHIL % 0.3 %; EOSINOPHIL % 0.2 %; HEMATOCRIT 39.7 % (37.0-53.0); HEMOGLOBIN 13.9 g/dL (11.0-16.0); IMMATURE GRANULOCYTE # 0.1 K/uL (0.0-0.3); IMMATURE GRANULOCYTE % 0.6 %; LYMPHOCYTE # 1.2 K/uL (0.8-4.0); LYMPHOCYTE % 9.7 %; MCH 30.7 pg (27.0-34.0); MCV 87.6 fl (83.0-98.0); MONOCYTE # 1.5 K/uL (0.0-1.0); MONOCYTE % 12.1 %; NEUTROPHIL # (ANC) 9.5 K/uL (1.4-9.0); NEUTROPHIL % 77.1 %; NRBC % 0 /100WBC (0-0.00); PLATELET COUNT 319 K/uL (150-450); RBC 4.53 M/uL (3.50-5.50); RDW-CV 12.5 % (11.9-14.6); WBC 12.3 K/uL (4.0-11.0)
[2017-03-22 04:04] LABS: ALBUMIN 3.2 gm/dL (3.5-5.0); ANION GAP 10.4 (10.0-19.0); BLOOD UREA NITROGEN 13 mg/dL (6-24); CALCIUM 8.5 mg/dL (8.5-10.5); CHLORIDE 97 mMol/L (96-110); CO2 26 mMol/L (22-32); CREATININE 0.8 mg/dL (0.6-1.3); ESTIMATED GFR (MDRD EQUATION) > 60; PHOSPHORUS 2.3 mg/dL (2.5-4.9); POTASSIUM 3.4 mMol/L (3.7-5.1); SODIUM 130 mMol/L (135-145)
--- NOTE | 2017-03-22 05:36 | NUR ---
Significant Event: A/0 X 3, COOPERATIVE WITH CARES. AMBULATES STAND BY ASSIST. HR REMAINS TACHY AT TIMES IN THE 1'TEENS, DROPS TO 90'S WHEN SLEEPING. SBP'S 100'S TO 1'TEENS. ALL OTHER VSS ON 02, AFEBRILE. NA+ THIS AM 130. STRICT I/O WITH 1500 ML FLUID RESTRICTION. NO PAIN, NO PAIN MEDS GIVEN. Follow up: CONTINUE RESPIRATORY TREATMENTS TILL POSSIBLE SURGERY ON MONDAY.
--- NOTE | 2017-03-22 16:42 | NUR ---
Significant Event: VSS AND WEANED TO RA. AFEBRILE. C/O LT)EYE BLURRINESS AGAIN TODAY, MD'S AWARE. PLAN FOR LT)CAROTID SURGERY WITH DR. QUINTERO IN THE AM AROUND 1000. ANESTHESIA WAS UP TO EVAL AND HAS PREOP BREATHING TX, ABX, MEDS AND POST -OP BIPAP AVAILABLE. ATIVAN X1 PO WAS GIVEN THIS AM FOR CIWA SCORE OF 8, HAS HELPED T/O SHIFT. NICOTINE PATCH WAS ALSO STRONGLY ENCOURAGED DUE TO HAD BEEN REFUSING AND HE AGREED TO WEAR IT TODAY. VOIDS WITH ADEQUATE UOP. DR. PARHAM CONSULTED FOR HYDRONEPHROSIS; WILL BE IN LATER TODAY OR TOMORROW TO SEE. K PHOS INFUSED. REPOSITIONED Q2H AND ALOE TO BUTTOCKS. Follow up: CONTINUE PLAN OF CARE; NPO P MN FOR CAROTID SURGERY IN THE AM.
[2017-03-23 00:18] LABS: BILIRUBIN URINE NEGATIVE (NEGATIVE); BLOOD URINE 25 /UL (NEGATIVE); COLOR URINE YELLOW (YELLOW); GLUCOSE URINE NEGATIVE (NEGATIVE); KETONE URINE NEGATIVE (NEGATIVE); LEUKOCYTES URINE NEGATIVE /UL (NEGATIVE); NITRITE URINE NEGATIVE (NEGATIVE); PROTEIN URINE NEGATIVE (NEGATIVE); TURBIDITY URINE CLEAR (CLEAR); UROBILINOGEN URINE 1 mg/dL (NORMAL)
[2017-03-23 00:44] LABS: BACTERIA URINE NEGATIVE (NEGATIVE); EPITHELIAL URINE RARE #/HPF (NEGATIVE); RBC URINE 0-2 #/HPF (NEGATIVE); WBC URINE 0-2 #/HPF (NEGATIVE)
--- NOTE | 2017-03-23 04:49 | NUR ---
Pt a/o x4. VS- 90's on RA, afebrile. HR 110-130's all noc. SBP 90-110's all noc. denies pain. PO ativan given x1 at hs. Urology consulted- ua collected, post void (400ml) bladder scan 669ml. Pt denies pain/urgency to void. consents signed for surgery. Plan: L Carotid surgery today. needs renal ultra sound and bladder ultrasound
[2017-03-23 05:06] LABS: BASOPHIL # 0.1 K/uL (0.0-0.2); BASOPHIL % 0.4 %; EOSINOPHIL # 0.1 K/uL (0.0-0.5); EOSINOPHIL % 0.5 %; HEMATOCRIT 38.6 % (37.0-53.0); HEMOGLOBIN 13.4 g/dL (11.0-16.0); IMMATURE GRANULOCYTE # 0.1 K/uL (0.0-0.3); IMMATURE GRANULOCYTE % 0.6 %; LYMPHOCYTE # 1.7 K/uL (0.8-4.0); LYMPHOCYTE % 14.6 %; MCH 30.7 pg (27.0-34.0); MCHC 34.7 gm/dL (32.0-36.5); MCV 88.3 fl (83.0-98.0); MONOCYTE # 1.3 K/uL (0.0-1.0); MONOCYTE % 11.4 %; NEUTROPHIL # (ANC) 8.4 K/uL (1.4-9.0); NEUTROPHIL % 72.5 %; NRBC % 0 /100WBC (0-0.00); PLATELET COUNT 324 K/uL (150-450); RBC 4.37 M/uL (3.50-5.50); RDW-CV 12.9 % (11.9-14.6); WBC 11.6 K/uL (4.0-11.0)
[2017-03-23 05:25] LABS: ANION GAP 10.7 (10.0-19.0); BLOOD UREA NITROGEN 13 mg/dL (6-24); CHLORIDE 97 mMol/L (96-110); CO2 28 mMol/L (22-32); CREATININE 0.7 mg/dL (0.6-1.3); ESTIMATED GFR (MDRD EQUATION) > 60; PHOSPHORUS 2.6 mg/dL (2.5-4.9); POTASSIUM 3.7 mMol/L (3.7-5.1); SODIUM 132 mMol/L (135-145)
--- NOTE | 2017-03-23 10:55 | NUR ---
A - NUTRITION F/U. NA+ 132, GLU 107, BUN/GEODETIC SURVEY DIRECTOR 13/0.7, ALB 3.0. PT W/ 1+ EDEMA TO WILLIE FEET/ANKLES. NPO FOR SURGERY. PT HAS BEEN EATING 50-100%, OFFERED ENSURE BID W/ MEALS. D - AT RISK W/ SEVERE PCM PER MD R/T INADEQUATE ENERGY AND PROTEIN INTAKE. I - GOAL: CONTINUED 50-100% INTAKE. M/E - WILL CONT TO MONITOR INTAKE AND F/U IN 3-5 DAYS.
--- NOTE | 2017-03-23 13:34 | NUR ---
1005 Went past [facility] room and was going to visit with him but his RN Evelina tells me that he is down in OR now and she isn't for sure how long he will be gone for. Let her know that I would stop back by tomorrow to try to visit with him and discuss dismissal plans at that time. CM to continue to follow and assist.
--- NOTE | 2017-03-23 16:20 | NUR ---
Significant Event: A/O x3, cooperative with cares. VS, SBP 122, HRs 120-140s, on room air but desats with any movement/activity. No c/o pain. Voids per urinal. Transported by bed to OR accompanied by transport staff Follow up:ultrasound of kidneys et bladder need done
--- NOTE | 2017-03-23 17:38 | NUR ---
Admit to ICU from PACU. Patient oriented x3, equal strength in all 4 extremities. Denies n/t or pain. SR with PACs, Bernardo to keep MAPS >70. 3L N/C, lungs diminished throughout. Did get straight cath post procedure with 1400 mL return. Scant amount of drainage to dressing to L) carotid.
--- NOTE | 2017-03-24 04:47 | NUR ---
Significant Event: Pt is alert and orineted x3. Pupils are equal and reactive. Moves all extremities spontaneously and to command. Bernardo gtt was turnned off at 2301 this shift. Pressures have remained above paramiters since. HR has been tachy this shift. Cole was placed do to large bladder scan volume. No BM this shift. [address] Dressing to neck has a small amount of marked drainage. Follow up: Change of
[2017-03-24 05:44] LABS: ALBUMIN 2.6 gm/dL (3.5-5.0); ANION GAP 11.1 (10.0-19.0); BLOOD UREA NITROGEN 8 mg/dL (6-24); CALCIUM 8.1 mg/dL (8.5-10.5); CHLORIDE 97 mMol/L (96-110); CO2 26 mMol/L (22-32); CREATININE 0.7 mg/dL (0.6-1.3); ESTIMATED GFR (MDRD EQUATION) > 60; PHOSPHORUS 2.5 mg/dL (2.5-4.9); POTASSIUM 4.1 mMol/L (3.7-5.1); SODIUM 130 mMol/L (135-145)
[2017-03-24 05:46] LABS: BASOPHIL % 0.3 %; EOSINOPHIL % 0.2 %; HEMATOCRIT 34.2 % (37.0-53.0); HEMOGLOBIN 11.8 g/dL (11.0-16.0); IMMATURE GRANULOCYTE # 0.1 K/uL (0.0-0.3); IMMATURE GRANULOCYTE % 0.5 %; LYMPHOCYTE # 1.3 K/uL (0.8-4.0); LYMPHOCYTE % 12.3 %; MCH 30.6 pg (27.0-34.0); MCHC 34.5 gm/dL (32.0-36.5); MCV 88.8 fl (83.0-98.0); MONOCYTE # 1.2 K/uL (0.0-1.0); MONOCYTE % 11.5 %; MPV 8.3 fl (9.4-12.4); NEUTROPHIL # (ANC) 7.7 K/uL (1.4-9.0); NEUTROPHIL % 75.2 %; NRBC % 0 /100WBC (0-0.00); PLATELET COUNT 299 K/uL (150-450); RBC 3.85 M/uL (3.50-5.50); RDW-CV 13.2 % (11.9-14.6); WBC 10.2 K/uL (4.0-11.0)
--- NOTE | 2017-03-24 13:35 | NUR ---
PATIENT A/O X3. SPEECH IS SOFT SPOKEN. FAMILY AT BEDSIDE. DRSG REMOVED FROM LEFT NECK, BRUISING NOTED. MARIN REMOVED AT 0730 THIS AM. NO VOID AT THIS TIME. FLOMAX STARTED. PUPILS 3 AND BRISK. UP IN CHAIR. LS CLEAR NO OXYGEN. SATS >90%. ABD SOFT WITH ACTIVE BOWEL TONES. AFEBRILE. NO C/O.
--- NOTE | 2017-03-24 18:32 | NUR ---
Significant Event: A/O x3, cooperative with cares. VS, SBP 136, HRs 120s, on room air. No c/o pain. Incision to L) neck, open to air, edges approximated, sutures intact. Has not voided since mesa was dc'd; bladder scan showed 703 ml; straight cath x1 with 475 ml returned. Repeat bladder scan [address] Johnson up to see patient et informed of situation; orders recieved. Follow up: possible d/c tomorrow
[2017-03-25 04:15] LABS: BASOPHIL % 0.4 %; EOSINOPHIL # 0.1 K/uL (0.0-0.5); EOSINOPHIL % 0.7 %; HEMATOCRIT 37.7 % (37.0-53.0); HEMOGLOBIN 13.2 g/dL (11.0-16.0); IMMATURE GRANULOCYTE # 0.1 K/uL (0.0-0.3); IMMATURE GRANULOCYTE % 0.6 %; LYMPHOCYTE # 1.3 K/uL (0.8-4.0); MCH 31.4 pg (27.0-34.0); MCV 89.5 fl (83.0-98.0); MONOCYTE # 1.3 K/uL (0.0-1.0); MPV 8.1 fl (9.4-12.4); NEUTROPHIL # (ANC) 7.2 K/uL (1.4-9.0); NEUTROPHIL % 72.3 %; NRBC % 0 /100WBC (0-0.00); PLATELET COUNT 350 K/uL (150-450); RBC 4.21 M/uL (3.50-5.50); RDW-CV 12.9 % (11.9-14.6)
[2017-03-25 04:31] LABS: ANION GAP 10.5 (10.0-19.0); BLOOD UREA NITROGEN 10 mg/dL (6-24); CALCIUM 8.4 mg/dL (8.5-10.5); CHLORIDE 95 mMol/L (96-110); CO2 30 mMol/L (22-32); CREATININE 0.7 mg/dL (0.6-1.3); ESTIMATED GFR (MDRD EQUATION) > 60; MAGNESIUM 2.1 mg/dL (1.8-2.6); POTASSIUM 3.5 mMol/L (3.7-5.1); SODIUM 132 mMol/L (135-145)
--- NOTE | 2017-03-25 04:51 | NUR ---
Significant Event:A/Ox3. Afebrile. HR 80-120 ST. Sats >90% on RA. VIOLETTA completed with no need for oxygen. Lung sounds clear/dim. SBP 140-120s. Transfers SBA with walker. One large void noted but bladder scan post void showed 986, per order mesa placed and got 500ml out right away. CT of abd/pelvis showed enlarged prostate and severe L)hydronephrosis. Flomax order request from not addressed by hospitalist but patient did receive dose in the AM in the ICU. Follow up:Possible discharge with mesa. Medications on chart for .
[2017-03-25] MEDS ORDERED: COLACE100 MG PO (10:27)
[2017-03-25] MEDS ORDERED: ANUSOL-HC CREAM30 GM R (10:28)
[2017-03-25] MEDS ORDERED: THIAMINE HCL100 MG PO (10:29)
[2017-03-25] MEDS ORDERED: MIRALAX17 GM PO (10:29)
[2017-03-25] MEDS ORDERED: FLOMAX0.4 MG PO (10:31)
[2017-03-25] MEDS ORDERED: K-TAB 10MEQ10 MEQ PO (10:33)
[2017-03-25] MEDS ORDERED: NORCO 5-325 TA1 EACH PO (10:33)
--- NOTE | 2017-03-25 12:52 | NUR ---
PATIENT A/OX3, VSS ON ROOM AIR. PT. SHOWERED TODAY, GETS UP SBA WITH WALKER/GAIT BELT. NO COMPLAINTS OF PAIN. LEFT NECK SURGICAL INCISION IS OPEN TO AIR, NO DRAINAGE/SWELLING NOTED TO SITE, JUST BRUISING. NEURO ASSESSMENT IS WNL. DISMISSAL INSTRUCTIONS, NEW MEDICATIONS, MARIN CATHETER CARES WITH LEG/OVER NIGHT BAGS INSTRUCTIONS GONE OVER WITH PATIENT AND . INFORMED THEM THEY WOULD HAVE TO MAKE FOLLOW-UP APPOINTMENTS TO DOCTORS, SINCE OFFICES ARE CLOSED TODAY. NO FURTHER QUESTIONS THIS TIME. ALL BELONGINGS SENT HOME WITH PATIENT. IV'S REMOVED FROM BILATERAL FOREARMS WITHOUT DIFFICULTLY. ATIVAN GIVEN X1 @ 7987 FOR ANXIETY.
== END 2017-03-25 12:45 | disposition disaster alternative care site (69) | DRG 37 ==
LOC: GPCU 15:20 → GICU 03-23 16:22 → GPCU 03-24 14:42
PROVIDERS: Hospitalist; Internal Medicine; Internal Medicine Nephrology; ADMIT Surgery Vascular Surgery
DX: I65.22 Occlusion and stenosis of left carotid artery (principal); E43 Unspecified severe protein-calorie malnutrition; J96.21 Acute and chronic respiratory failure with hypoxia; E22.2 Syndrome of inappropriate secretion of antidiuretic hormone; J44.1 Chronic obstructive pulmonary disease with (acute) exacerbation; N13.30 Unspecified hydronephrosis; Z68.1 Body mass index [BMI] 19.9 or less, adult; F10.239 Alcohol dependence with withdrawal, unspecified; K64.9 Unspecified hemorrhoids; Z72.0 Tobacco use; I10 Essential (primary) hypertension; E78.5 Hyperlipidemia, unspecified; I65.21 Occlusion and stenosis of right carotid artery; Z91.14 Patient's other noncompliance with medication regimen
CPT/HCPCS: J0690; J1644; J2001; J2370; J2405; J2720; J3480; J7030; J7050; J7120; Q9967

== ENCOUNTER → 2017-03-20 | Outpatient (CLI) | payer MEDICARE ==
[~2017-03-20] MED LIST: ANORO ELLIPTA1 EACH PO; ANUSOL-HC CREAM30 GM R; ASPIRIN LO-DOSE81 MG PO; COLACE100 MG PO; DUONEB; FLOMAX0.4 MG PO; K-TAB 10MEQ10 MEQ PO; LIPITOR80 MG PO; LISINOPRIL-HCT1 EAC1 PO; MIRALAX17 GM PO; NORCO 5-325 TA1 EACH PO; NORVASC10 MG PO; PLAVIX75 MG PO; PROVENTIL OR V6.7 GM PO; THIAMINE HCL100 MG PO
== END | disposition disaster alternative care site (69) ==
LOC: GRAD 10:17
DX: I65.23 Occlusion and stenosis of bilateral carotid arteries (principal)
CPT/HCPCS: Q9967